=== PATIENT | male | born 2000 | race Caucasian/White ===

== ENCOUNTER 2019-08-31 08:21 | Emergency (ER) | payer OTHER, SELFPAY ==
[2019-08-31 08:30] VITALS: BP 110/68; PULSE 77; RESP 22; TEMP 36.6; O2SAT 100
--- NOTE | 2019-08-31 08:56 | ED.SKABFB ---
HPI - Skin/Abscess/Foreign Bdy General Chief complaint: Skin/Abscess/Foreign Body Stated complaint: sores on right arm Time Seen by Provider: 08/31/19 09:00 Source: patient and RN notes reviewed Mode of arrival: ambulatory Limitations: no limitations History of Present Illness HPI narrative: 19-year-old male presents with concern for rash. Reports a rash with blisters on his right arm that is itching and burning. Reports history of poison anat rash. Reports contact with plants recently. Denies swollen lips, swollen tongue, difficulty swallowing, breathing, shortness of breath. Denies rash in any other area. Reports she has been using calamine lotion. complaint: rash Related Data Allergies Allergy/AdvReac Type Severity Reaction Status Date / Time No Known Allergies Allergy Mild Verified 08/31/19 08:36 Review of Systems Review of Systems: Narrative: CONSTITUTIONAL: Denies malaise, chills, sweats, or fever. ENT: Denies swollen lips, tongue, difficulty swallowing CARDIOVASCULAR: Denies chest pain, palpitations, or edema. RESPIRATORY: Denies cough or dyspnea. GASTROINTESTINAL: Denies abdominal pain, nausea, vomiting, diarrhea, SKIN: Reports burning, itchy rash with blisters on right arm MUSCULOSKELETAL: Denies myalgia. NEUROLOGIC: Denies headache. All systems reviewed & are unremarkable except as noted in HPI and below PMFSH Comments At time of signature, agree with nursing past medical, surgical, social and family history. There is no relevant family history pertinent to the presenting complaint Exam Narrative: Exam Narrative: GENERAL: Well-appearing, well-nourished, and in no acute distress. HEAD: Normocephalic EYES: PERRLA, conjunctivae clear ENT: Nares clear. Mucous membranes moist. Oropharynx without edema, erythema or lesions. Tonsils not enlarged and without exudate. NECK: Supple. CHEST: No respiratory distress. Speaks in full sentences. HEART: Regular rate and rhythm. No murmur heard. Normal peripheral pulses. SKIN: Warm, dry. [place], vesicular rash noted to right forearm consistent with plant related contact dermatitis NEURO: Alert and oriented x3. PSYCH: Normal mood and affect Course Course Emergency Course: Patient is aware of diagnosis, understands and agrees to treatment plan. Anticipatory guidance given. Patient agrees to follow-up as directed and is aware of reasons to seek care at the emergency department. Portions of this record may have been created with voice recognition software Vital Signs Vital signs: Vital Signs Temperature 97.9 F 08/31/19 08:30 Pulse Rate 77 08/31/19 08:30 Respiratory Rate 22 H 08/31/19 08:30 Blood Pressure 110/68 08/31/19 08:30 Pulse Oximetry 100 08/31/19 08:30 Temperature 97.9 F 08/31/19 08:30 Pulse Rate 77 08/31/19 08:30 Respiratory Rate 22 H 08/31/19 08:30 Blood Pressure 110/68 08/31/19 08:30 Pulse Oximetry 100 08/31/19 08:30 Reviewed. MDM - Skin/Abscess/Foreign Bdy MDM Narrative Medical decision making narrative: Does not appear at this time to be erythema multiforme, bullous, SJS, TEN; no evidence at this time to suggest RMSF, endocarditis or Lyme disease; patient looks well, nontoxic and is tolerating oral intake; no neurologic signs or symptoms; no headache, photophobia or neck pain; afebrile; appropriate for initial outpatient treatment; discussed the importance of follow-up, patient agrees; question, viral exanthema, contact dermatitis, allergic dermatitis, eczema, urticaria. No soft palate or uvula edema, no tongue, lip edema or other mucosal involvement, no respiratory compromise, no stridor, no wheezing, no wheezing, no history of syncope, no hypotension, no nausea, vomiting, or diarrhea. Instructed patient to go to nearest ER immediately for any worsening symptoms including but not limited to: fever, spreading rash, pain, sore throat, headache, dizziness, chest pain, trouble breathing, or any symptoms concerning to the patient.
== END 2019-08-31 09:21 | disposition home or self-care (01) ==
PROVIDERS: Emergency Provider Nurse Practitioner
DX: L25.5 Unspecified contact dermatitis due to plants, except food (principal)
CPT/HCPCS: 99213; G0463

== ENCOUNTER 2019-11-09 19:01 | Emergency (ER) | payer OTHER, SELFPAY ==
[2019-11-09 19:06] VITALS: BP 139/68; PULSE 76; RESP 16; TEMP 37.6; O2SAT 100
--- NOTE | 2019-11-09 19:11 | ED.EYEPROB ---
HPI - Eye Problem General Chief complaint: Eye Problems Stated complaint: right eye red/swollen Time Seen by Provider: 11/09/19 19:16 Source: patient and RN notes reviewed Mode of arrival: ambulatory Limitations: no limitations History of Present Illness HPI Narrative: 19 year old male presents to [facility] care with complaints of right eye feeling like he has something in his eye. Patient states that he was sawing a board at work today at about 1500 when he felt like he got something in his eye. Patient states that his right eye is very irritated, has noted redness and he is very photophobic. Patient has some visual blurring but visual acuity right 20/20, left 20/20 with no corrective lens worn. MD chief complaint: eye pain, eye redness and foreign body Onset (ago): hour(s) (at 1500 today) Onset description: gradual Duration: constant Location: right eye Eye Symptoms: redness, foreign body sensation, blurry vision and photophobia Place: work Mechanism: other (while sawing a board) Severity: moderate Severity scale (1-10): 7 If Pain, Quality: burning Context: other (feels like something in eye) Treatments Prior to Arrival: other (eye drops) Related Data Patient tetanus UTD: Yes Allergies Allergy/AdvReac Type Severity Reaction Status Date / Time No Known Allergies Allergy Mild Verified 08/31/19 08:36 Review of Systems Review of Systems: Narrative: CONSTITUTIONAL: Denies fever, chills, or sweats. EYES: Positive visual changes, redness, and excessive watering and photophobia, foreign body feeling ENT: Denies rhinorrhea, congestion, sore throat, or otalgia. CARDIOVASCULAR: Denies chest pain, palpitations, or edema. RESPIRATORY: Denies cough or dyspnea. GASTROINTESTINAL: Denies abdominal pain, nausea, vomiting, or diarrhea. GENITOURINARY: Denies dysuria or hematuria. SKIN: Denies rash or itching. MUSCULOSKELETAL: Denies back pain, joint pain, or myalgia. NEUROLOGIC: Denies headache, numbness, or weakness. PSYCHIATRIC: Denies anxiety or depression. All systems reviewed & are unremarkable except as noted in HPI and below PMFSH Past Medical History Medical History (Updated 11/11/19 @ 14:05 by Nabila Zarco NP) Right wrist fracture Social History Social History (Updated 11/09/19 @ 19:53 by Nabila Zarco NP) Tobacco type: e-cigarettes/vaping Living arrangements: with family Gender identity (if verbalized by the patient): Male Comments At time of signature, agree with nursing past medical, surgical, social history. There is no relevant family history pertinent to the presenting complaint Exam Narrative: Exam Narrative: GENERAL: Well-appearing, well-nourished, and in no acute distress. HEAD: Normocephalic, atraumatic. EYES: PERRLA and EOMI, right eye sclera red with patient having irritation and photophobia to his right eye, conjunctiva clear ENT: Nares clear, no rhinorrhea or epistaxis. Mucous membranes moist. NECK: Supple.no lymphadenopathy CHEST: Clear to auscultation. No respiratory distress. HEART: Regular rate and rhythm. No murmur heard. Normal peripheral pulses. ABDOMEN: Soft, nontender, nondistended, normal active bowel sounds. EXTREMITIES: Normal range of motion. No edema. SKIN: Warm, dry, no rash. NEURO: No focal deficits. Alert and oriented x3. Course Vital Signs Vital signs: Vital Signs Temperature 37.6 C H 11/09/19 19:06 Pulse Rate 76 11/09/19 19:06 Respiratory Rate 16 11/09/19 19:06 Blood Pressure 139/68 11/09/19 19:06 Pulse Oximetry 100 11/09/19 19:06 Temperature 37.6 C H 11/09/19 19:06 Pulse Rate 76 11/09/19 19:06 Respiratory Rate 16 11/09/19 19:06 Blood Pressure 139/68 11/09/19 19:06 Pulse Oximetry 100 11/09/19 19:06 Procedures FB Removal Eye Foreign Body #1: Foreign Body Removal Date: 11/09/19 Foreign Body Removal Time: 19:20 Time Out performed: Yes Location: eye (R) Topical anesthetic used: tetracaine For
== END 2019-11-09 19:35 | disposition home or self-care (01) ==
PROVIDERS: Emergency Provider Registered Nurse
DX: S05.01XA Injury of conjunctiva and corneal abrasion without foreign body, right eye, initial encounter (principal); X58.XXXA Exposure to other specified factors, initial encounter; F17.200 Nicotine dependence, unspecified, uncomplicated
CPT/HCPCS: 99213; A9270; G0463

== ENCOUNTER 2022-11-21 10:27 | Emergency (ER) | payer OTHER, SELFPAY ==
[2022-11-21 10:36] VITALS: BP 108/60; PULSE 103; RESP 18; TEMP 37.8; O2SAT 100
--- NOTE | 2022-11-21 11:17 | ED.URI ---
HPI - URI/Sore Throat General Chief Complaint: Upper Respiratory Infection Stated Complaint: Fever/Sore Throat/Dizziness History of Present Illness HPI Narrative: PATIENT PRESENTS WITH A SORE THROAT. SLIGHT FEVER DENIES ANY COUGH NO URI SYMPTOMS. HURTS TO SWALLOW BUT HAS NO TROUBLE SWALLOWING NO DROOLING. Related Data Allergies Allergy/AdvReac Type Severity Reaction Status Date / Time No Known Allergies Allergy Mild Verified 11/21/22 10:46 Review of Systems Review of Systems: CONSTITUTIONAL: DENIES CHILLS, OR SWEATS. REPORTS FEVER AND GENERALIZED BODY ACHES EYES: DENIES VISUAL CHANGES, REDNESS, OR DISCHARGE. ENT: DENIES OTALGIA. REPORTS NASAL CONGESTION RUNNY NOSE AND SORE THROAT CARDIOVASCULAR: DENIES CHEST PAIN, PALPITATIONS, OR EDEMA. RESPIRATORY: DENIES DYSPNEA. REPORTS OCCASIONAL COUGH GASTROINTESTINAL: DENIES ABDOMINAL PAIN, NAUSEA, VOMITING, OR DIARRHEA. GENITOURINARY: DENIES DYSURIA OR HEMATURIA. SKIN: DENIES RASH OR ITCHING. MUSCULOSKELETAL: DENIES BACK PAIN, JOINT PAIN, OR MYALGIA. REPORTS GENERALIZED BODY ACHES NEUROLOGIC: DENIES HEADACHE, NUMBNESS, OR WEAKNESS. PSYCHIATRIC: DENIES ANXIETY OR DEPRESSION. [facility] Past Medical History Medical History (Updated 11/21/22 @ 11:18 by JASON Spencer) Right wrist fracture Social History Social History (Updated 11/09/19 @ 19:53 by Nabila Zarco NP) Tobacco type: e-cigarettes/vaping Living arrangements: with family Gender identity (if verbalized by the patient): Male Comments AT TIME OF SIGNATURE, AGREE WITH NURSING PAST MEDICAL, SURGICAL, SOCIAL AND FAMILY HISTORY. THERE IS NO RELEVANT FAMILY HISTORY PERTINENT TO THE PRESENTING COMPLAINT Exam Narrative: THE PATIENT IS A WELL-DEVELOPED, WELL-NOURISHED IN NO ACUTE DISTRESS. SKIN: SKIN IS WARM AND DRY WITHOUT ERYTHEMA, SWELLING OR EXUDATE. THERE IS GOOD TURGOR. NO TENTING. HEAD: ATRAUMATIC. NORMOCEPHALIC. NO TEMPORAL OR SCALP TENDERNESS. EYES: MOIST AND BRIGHT. SCLERA AND CONJUNCTIVAE NORMAL. NO DISCHARGE. PERRLA. EXTRAOCULAR MOTIONS INTACT. GROSS VISUAL ACUITY INTACT. EARS: PINNA IS NORMAL SHAPE AND CONTOUR. CLEAR EXTERNAL AUDITORY CANALS. TM PEARLY [place] WITH GOOD CONE OF LIGHT, NO ERYTHEMA OR SUPPURATION. BILATERAL CERUMEN NOTED NO GROSS HEARING DEFICIT. NOSE: PINK, MOIST MUCOSA WITH GOOD AIR MOVEMENT. CLEAR RHINORRHEA WITHOUT NASAL FLARING. SEPTUM MIDLINE. MOUTH: MOIST MUCOUS MEMBRANES. THROAT; MILD ERYTHEMA NOTED TO POSTERIOR OROPHARYNX WITH MODERATE POSTNASAL DRAINAGE. WITHOUT EXUDATE OR ULCERATION.. UVULA MIDLINE. NORMAL MOVEMENT OF SOFT PALATE. NECK: SUPPLE AND NONTENDER WITH FULL RANGE OF MOTION WITHOUT DISCOMFORT. NO MENINGEAL SIGNS. LUNGS: EQUAL AND BILATERAL BREATH SOUNDS WITHOUT WHEEZES, RALES OR RHONCHI. CHEST: THE CHEST WALL IS WITHOUT RETRACTIONS OR USE OF ACCESSORY MUSCLES. HEART: HAS A REGULAR RATE AND RHYTHM WITHOUT MURMUR, GALLOPS, CLICK OR RUB. ABDOMEN: SOFT, NONTENDER WITH POSITIVE ACTIVE BOWEL SOUNDS. NO REBOUND TENDERNESS. EXTREMITIES: WITHOUT CYANOSIS, CLUBBING OR EDEMA. EQUAL 2+ DISTAL PULSES AND 2 SECOND CAPILLARY REFILL NOTED. NEUROLOGIC: ALERT, ACTIVE, . THE PATIENT MOVES ALL EXTREMITIES WITH NORMAL MUSCLE STRENGTH. NORMAL MUSCLE TONE IS NOTED. NORMAL COORDINATION IS NOTED. NO FOCAL NEUROLOGICAL FINDINGS NOTED. Course Course Level of Care: Express Care Visit Vital Signs Vital signs: Vital Signs Temperature 37.8 C H 11/21/22 10:36 Pulse Rate 103 H 11/21/22 10:36 Respiratory Rate 18 11/21/22 10:36 Blood Pressure 108/60 11/21/22 10:36 Pulse Oximetry 100 11/21/22 10:36 Oxygen Delivery Room Air 11/21/22 10:36 Temperature 37.8 C H 11/21/22 10:36 Pulse Rate 103 H 11/21/22 10:36 Respiratory Rate 18 11/21/22 10:36 Blood Pressure 108/60 11/21/22 10:36 Pulse Oximetry 100 11/21/22 10:36 Oxygen Delivery Room Air 11/21/22 10:36 MDM - URI/Sore Throat Lab Data Labs: Strep Screen Presumptive Negativ
== END 2022-11-21 11:25 | disposition home or self-care (01) ==
PROVIDERS: Emergency Provider Nurse Practitioner Family
DX: J02.9 Acute pharyngitis, unspecified (principal); F17.290 Nicotine dependence, other tobacco product, uncomplicated
CPT/HCPCS: 87081; 87880; 99203; G0463